=== PATIENT | female | born 1940 | race Caucasian/White ===

== ENCOUNTER 2017-09-30 18:14 | Inpatient (IN) | payer MEDICARE ==
[~2017-09-30] VITALS: Ht 167.6 cm; Wt 76.8 kg
[2017-09-30] MEDS ORDERED: ALLERGY MEDICAT25 MG PO (18:28)
[2017-09-30] MEDS ORDERED: METOPROLOL SUCC25 MG PO (18:29)
[2017-09-30] MEDS ORDERED: METOPROLOL TART25 MG PO (18:30)
[2017-09-30] MEDS ORDERED: ACETAMINOPHEN325 M1 PO (18:31)
[2017-09-30] MEDS ORDERED: DOK100 MG PO (18:32)
[2017-09-30] MEDS ORDERED: DULCOLAX10 MG PR (18:32)
[2017-09-30] MEDS ORDERED: FEOSOL325 MG PO (18:33)
[2017-09-30] MEDS ORDERED: FOLIC ACID0.4 MG PO (18:33)
[2017-09-30] MEDS ORDERED: LISINOPRIL2.5 MG PO (18:34)
[2017-09-30] MEDS ORDERED: IPRAT-ALBUT 0.5-3 ML INH (18:34)
[2017-09-30] MEDS ORDERED: FUROSEMIDE20 MG PO (18:34)
[2017-09-30] MEDS ORDERED: NAPROXEN250 MG PO (18:35)
[2017-09-30] MEDS ORDERED: NYSTATIN1 EAC1 TOP (18:35)
[2017-09-30] MEDS ORDERED: FLEET ENEMA133 ML PR (18:36)
[2017-09-30] MEDS ORDERED: CORTIZONE-1028 GM TOP (18:37)
[2017-09-30] MEDS ORDERED: MELATONIN3 MG PO (18:38)
--- NOTE | 2017-09-30 22:15 | NUR ---
MD CALLED PRIOR TO PT ARRIVAL. PER GIVE BUMEX UNDILUTED 5GM 20ML VIAL AT 0.25 MG/HR WHICH EQUALS 1ML/HR. READ BACK TO MD. PER CAN PLACE PT ON CPAP WHEN SHE ARRIVES D/T RESP. DISTRESS.
--- NOTE | 2017-09-30 22:25 | NUR ---
PT ARRIVED TO CCU ROOM 130 WITH SHAKE MAKER. PT IS VERY LETHARIC AND HAVING DIFICULTY TALKING AND BREATHING. PT RR 36 ON ARRIVAL AND PT STATES "I CANT BREATH I FEEL SHORT OF BREATH". RT IN ROOM AND PLACED PT ON BIPAP. PT REMAINS VERY LETHARGIC. VITALS TAKEN.
--- NOTE | 2017-09-30 22:30 | NUR ---
CALLED MD TO UPDATE PT STATUS. UPDATED MD THAT PT ARRIVED VERY SOB WITH RR 36 AND LETHARGIC. PER MD NEW ORDERS PLACED FOR ABG.
--- NOTE | 2017-09-30 22:35 | NUR ---
PER MD IF PT IS LETHARGIC IN THE AM AFTER BEING ON BIPAP ALL NIGHT DRAW ANOTHER ABG TO SEE IF ABG IS IMPROVED.
--- NOTE | 2017-09-30 22:40 | NUR ---
RT COMPLETED ABG. PT REMAINS ON BIPAP AND RR IS SLIGHTLY BETTER. PT DID NOT AWAKEN OR MOVE WITH ABG DRAW. MBA INTERN IN ROOM TO GET 2ND IV ACCESS.
--- NOTE | 2017-09-30 23:00 | NUR ---
ABG RESULTS ARE FINAL. CALLED MD TO NOTIFY. PER MD KEEP PT ON BIPAP OVERNIGHT. IF PT REMAINS LETHARGIC IN THE AM WILL REPAEAT AN ABG AT THAT TIME. PT BP ALSO SOFT 100'S. PER MD CHANGE BUMEX GTT TO .25MG/HR EQUALS 1ML PER HOUR. OLIVA PLACED PER ORDERS. PER MD IF UNABLE TO GET IV ACESS MAY PLACE AN EJ TONIGHT. WILL CONTINUE TO CLOSELY MONITOR.
--- NOTE | 2017-10-01 | NUR ---
BUDGET MANAGER RN PLACED IV IN RIGHT WRIST. OLIVA PLACED WITH NO ISSUES. PT REMAINS LETHARGIC RESTING ON BIPAP AT THIS TIME. WHEN MOVING PTS HAND AND SAYING HER NAME PT WILL AWAKEN FOR APROX 10 SECONDS AND NOD YES/NO TO QUESTIONS. WILL CONTINUE TO ENCOURAGE REST AT THIS TIME. WILL CONTINUE TO CLOSELY MONITOR.
--- NOTE | 2017-10-01 02:10 | NUR ---
PT ALERTNESS REMAINS UNCHANGED. BIPAP REMAINS IN PLACE. OLIVA IN PLACE DRAINING CLEAR YELLOW URINE. WILL CONTINUE TO CLOSELY MONITOR AT THIS TIME.
--- NOTE | 2017-10-01 04:30 | NUR ---
PT RESTING IN BED. PT REPOSITIONED FOR COMFORT. PT REMAINS ORIENTED TO SELF, DATE, PLACE BUT IS STILL LETHARGIC AT THIS TIME. WILL CONTINUE TO CLOSELY MONITOR. PLACED DRESSING ON FOOT WOUND AND COCCYX. PICTURES PLACED IN THE BOOK.
--- NOTE | 2017-10-01 06:00 | NUR ---
PT RESTING IN BED. BED ALARM ON FOR PT SAFETY. PT REMAINS ON BIPAP AND IS TOLERATING IT WELL. WILL CONTINUE TO CLOSELY MONITOR AT THIS TIME.
--- NOTE | 2017-10-01 08:15 | NUR ---
ASSESSMENT DONE. WILL OPEN EYES, RESPOND APPROP, FOLLOWING COMMANDS.REMAINS ON BIPAP AT 30% 15/8. OLIVA CATH PATENT WITH CLEAR YELLOW URINE NOTED. TALKED WITH PATIENT ABOUT PLAN OF CARE.
--- NOTE | 2017-10-01 10:00 | NUR ---
DR. ALFARO HERE TO SEE PATIENT. NO FUTHER ORDERS AT THIS TIME. MODIFIED SPONGE BATH GIVEN AND DRAW SHEET CHANGED. IS WITH EXTREME SHORTNESS OF BREATH WITH REPOSITIONING. TOOK FEW SIPS OF WATER WHEN OFF BIPAP. OFF BIPAP APPROX 10 MIN. O2 SAT TO 85% WHEN ON 2 L NC. REFUSING FOOD AT THIS TIME.
--- NOTE | 2017-10-01 10:20 | NUR ---
GRANDDAUGHTER IS AT BEDSIDE.
--- NOTE | 2017-10-01 10:40 | EKG ---
[facility] [address] [facility] [place] [address] Signed Sinus tachycardia Low voltage QRS Cannot rule out Anteroseptal infarct , age undetermined Abnormal ECG No previous ECGs available Confirmed by JUNE ALFARO MD ([id number]) on 10/01/2017 10:40:21 AM Electronically Signed By: JUNE ALFARO MD 10/01/17 1040 PATIENT NAME: MELLISSA HENRY Electrocardiogram DATE OF : 36 PHYSICIAN: JUNE ALFARO MD REPORT #: [id number] REPORT IS CONFIDENTIAL AND NOT TO BE RELEASED WITHOUT AUTHORIZATION
--- NOTE | 2017-10-01 12:57 | NUR ---
PT AWAKE AT THIS TIME, DAUGHTER AT BEDSIDE, BIPAP REMOVED AND PLACED ON O2 VIA NC SPO2 96% AT THIS TIME. PT GIVEN SILPS OF WATER AT THIS TIME.
--- NOTE | 2017-10-01 13:00 | NUR ---
FAMILY MEMBERS HERE, BIPAP TO 2 L NC PER R/O FAMILY AND PATIENT. PATIENT DENIES PAIN.
--- NOTE | 2017-10-01 14:00 | NUR ---
AWAKE, FEEDING PATIENT YOGART AND PUDDING. REMAINDS VERY SHORT OF BREATH. ON O2 AT 2 L AT THIS TIME. FMAILY MEMBERS N ROOM. PJ FARIAS PATENT.
--- NOTE | 2017-10-01 17:59 | NUR ---
SLEEPING ON BIPAP.
--- NOTE | 2017-10-01 19:45 | NUR ---
PT SHIFT REPORT RECIEVED FROM DAY SHIFT RN. PT IS RESTING IN BED AT THIS TIME. WILL CONTINUE TO CLSOELY MONITOR. BIPAP IN PLACE. CALL LIGHT IN HAND.
--- NOTE | 2017-10-01 21:00 | NUR ---
IN TO ASSESS PT. PT WOKE WHEN SAYING HER NAME. PT REQUESTED TO HAVE BIPAP REMOVED. PLACED ON 2L NC WILL MONITOR SPO2. PT REQUESTED TO HAVE BEDDING CHANGED. PROVIDED SURY CARE AND CATH CARE. PT REQUESTED ENSURE AND PUDDING. PT IS ALET AND ORIENTED X4. WILL LEAVE PT ON NASAL CANUAL FOR A BIT LONGER PER PT REQUEST. PT IS TOELRATING 2L NC WELL AT THIS TIME WITH RR 20 AND DENIES SOB. NO ACESSORY MUSCLE USE. ASSESSMENT COMPLETED. PT DOES NOT KNOW WHEN SHE HAD A BOWEL MOVEMENT LAST. HYPOACTIVE BT. PT HAS SIGNIFICANT EDEMA THROUGHOUT BODY. 4 PLUS EDEMA IN LEGS AND ARMS. HEEL PROTECTORES IN PLACE. SCDS ON.
--- NOTE | 2017-10-01 21:45 | NUR ---
PT TOLERATED NASAL CANNUAL FOR APPROX 30 MINUTES BEFORE NEEDING TO BE PLACED BACK ON BIPAP. PT REQUESTED TYLENOL FOR GENERALIZED DISCOMFORT. RT IN TO PLACE MASK ON PT. PT HAS CALL LIGHT IN HAND. OLIVA DRAINING CLEAR YELLOW URINE. MONITORING Q1 HOUR. WILL CONTINUE TO CLOSELY MONITOR PT. BREATH SOUNDS ARE CLEAR AND DIMINISHED.
--- NOTE | 2017-10-01 23:45 | NUR ---
PT RESTING IN BED AT THIS TIME. PT REMAINS ON BIPAP AT 30% FIO2 18/8. PT TOLERATES THESE SETTINGS WELL. SPO2 97%. WILL CONTINUE TO CLOSELY MONITOR. CALL LIGHT NEXT TO PATIENT HAND.
--- NOTE | 2017-10-02 02:00 | NUR ---
PT RESTING IN BED ON BIPAP AT 30% FIO2. PT ALERT AND ORIENTED. PT REQUESTS ICE CHIPS OCCASIONALLY FOR DRY MOUTH. PT DENIES ANY NEEDS AT THIS TIME. WILL CONTINUE TO ENCOURAGE REST. WILL CONTINUE TO MONITOR URINE OUTPUT Q1 HOUR. PT REMAINS ON BUMEX GTT.
--- NOTE | 2017-10-02 04:09 | NUR ---
PT WOKE AND REQUESTED TYLENOL FOR GENERALIZED DISCOMFORT. PT ALSO REQUESTED TO HAVE HER EYES CLEANED, CHAPSTICK, AND ICE CHIPS. RT IN TO PLACE SMALLER BIPAP MASK ON PT FOR COMFORT. PT STATES SHE IS NOT HUNGRY AT THIS TIME, BUT WOULD LIKE BREAKFAST LATER. SMALLER BIPAP MASK FITS PT BETTER. WILL CONTINUE TO LET PT REST ON BIPAP AND REMOVE IN THE AM FOR BREAKFAST OR IF THE PT NEEDS AT BREAK FROM IT SOONER. PT WAS OFF FOR APROX 20 MINUTES AND TOLERATED IT WELL. PT ON 3L WHEN OFF OF BIPAP. WILL CONTINUE TO CLOSELY MONITOR. PT DENIES TURNING AT THIS TIME.
--- NOTE | 2017-10-02 05:00 | NUR ---
PT ASKED TO HAVE BIPAP OFF. PT REQUESTED WATER AND ICE CHIPS. PLACED PT ON NC AT 2L. WILL CLOSELY MONITOR PT FOR RESPIRATORY CHANGES AND MONITOR SPO2. PT ALERT AND ORIENTED X4. CALL LIGHT IN REACH. WILL CONTINUE TO CLOSELY MONITOR AT THIS TIME.
--- NOTE | 2017-10-02 06:15 | NUR ---
PT REMAINS ON 2L NC. PT IS SLEEPING AT THIS TIME. RR 18-22. SPO2 97-98% ON 2L NC. PT IS BASELINE 2L NC AT HOME. NO ACESSORY MUSCLE USE. PT DENIES SOB. WILL COTNINUE TO CLOSELY MONITOR.
--- NOTE | 2017-10-02 06:19 | NUR ---
UPDATED MD THAT PT HAD RUN OF VTACH THIS AM WHILE SLEEPING AND WAS ASYMPTOMATIC AND DID NOT FEEL ANYTHING. NO NEW ORDERS AT THIS TIME. WILL CONTINUE TO CLOSELY MONITOR.
--- NOTE | 2017-10-02 06:48 | NUR ---
PT TOLERATED APROX 2 HOURS ON NC AT 2L. NO ACCESORY MUSCLE USE NOTED. RR 22. SPO2 98%. PLACED BACK ON BIPAP UNTIL PT BREAKFAST ARRIVES TO GIVE PT A BREAK. WILL CONTINUE TO CLOSELY MONITOR.
--- NOTE | 2017-10-02 07:32 | NUR ---
BEDSIDE REPORT RECEIVED FROM LITZY KAUR. PT RESTING AT THIS TIME IN BED WITH BIPAP ON, SETTINGS OF 15/8 AND 30% FI02. PT REMAINS ON A BUMEX GTT AT 1 MG/HR AT THIS TIME. OLIVA DRAINING DILUTE YELLOW URINE. HR IN THE UPPER 90s TO LOW 100s. ASSESSMENT AND VITALS TO BE DONE.
--- NOTE | 2017-10-02 08:24 | NUR ---
PATIENT OFF BIPAP FOR BREAKFAST. PT STATES SHE IS FEELING BETTER OVERALL BUT FEELS VERY WEAK AND NOTES HOW SHE CAN HARDLY LIFT HER ARMS OFF THE BED. PT ON 2 L NC. PT HELPED TO EAT ALL HER BREAKFAST. HR ELEVATED OFF BIPAP, 110s-120s AT TIMES, SINUS WITH PVCs AND INCREASED IRREGULARITY. PT NOTES HOW "WILLROSA ELENA WAS GIVING ME BETA BLOCKERS AND IT WAS CAUSING ALL MY SWELLING. I'M ALLERGIC TO ALL BETA BLOCKERS. THEY CAUSE THIS SWELLING." REVIEWED WITH PATIENT PLAN OF CARE AND BUMEX GTT. PT'S ARMS ELEVATED ON PILLOWS. ASSESSMETN COMPLETE. LUNG SOUNDS POSTERIORLY MID LUNG AND DOWN VERY DIMINISHED. CONTINUE TO MONITOR CLOSELY. CALL LIGHT WITHIN REACH.
--- NOTE | 2017-10-02 09:21 | NUR ---
DR. ALFARO IN TO EVAL PATIENT. PLAN TO REPLACE MAGNESIUM, TURN BUMEX GTT UP TO 0.5 MG/HR, AND PLACE PICC. TYRONE RN, IN ROOM NOW TO PLACE PICC. PT ABLE TO SIGN CONSENT. BIPAP TO BE CHANGED OVER TO CPAP. CONTINUE TO MONITOR.
--- NOTE | 2017-10-02 09:51 | NUR ---
PICC BEING INSERTED AT THIS TIME. CPAP NOW WITH SETTINGS OF 6 CMH20 AND 30% FI02.
--- NOTE | 2017-10-02 10:20 | NUR ---
PICC INSERTION NOTE. ORDERS RECIEVED TO EVALUATE MELLISSA FOR POSSIBLE PICC PLACEMENT. AFTER REVIEWING THE CHART, INTERVIEWING THE PT, AND DISCUSSING CARE WITH HER PRIMARY NURSE, NO ABSOLUTE CONTRAINDICATIONS WERE FOUND. RISKS AND COMPLICATIONS OF PICC LINES WERE DISCUSSED AND INFORMED CONSENT WAS SIGNED PRIOR TO THE START OF THE PROCEDURE. U/S EVALUATION OF THE RIGHT ARM WAS UNDERTAKEN AND THE RIGHT BASILC VEIN WAS MEASURED AT 2 CM DEPTH AND COUND ACCOMIDATE A 8 FR LINE PER SITE RITE. A 4 FR LINE WAS CHOSEN AND TRIMMED TO A PREMEASURED LENGTH OF 42 CM. THERE WERE NO PROBLEMS WITH IV ACCESS, GUIDEWIRE, INTRODUCER OR PICC ADVANCEMENT. U/S WAS USED TO CONFIRM THE GUIDEWIRE PLACEMENT IN THE VESSEL AND BRISK DARK RED NONPULSATILE BLOOD WAS SEEN FLOWING FROM THE INTRODUCER PRIOR TO PICC ADVANCEMENT. MAGNET TRACKING SHOWED THE PICC DROPPING INTO A CENTRAL LOCATION IN THE CHEST AND A SINGLE CXR WAS TAKEN. WE AWAIT CLEARANCE FROM RADIOLOGY PRIOR TO CLEARING THE LINE FOR USE. THE PT TOLERATED THE PROCEDURE WELL. QUESTIONS WERE ANSWERED REGARDING PICC LINES.
--- NOTE | 2017-10-02 10:29 | NUR ---
WOUND NURSE HERE TO EVALUTE PATIENT'S RIGHT FOOT WOUND. IV MAG STARTED. BUMEX INFUSING AT 2 ML/HR = 0.5 MG/HR.
--- NOTE | 2017-10-02 11:28 | NUR ---
PATIENT UP TO CHAIR AFTER SITTING ON EDGE OF BED WITH HELP OF OCCUPATIONAL THERAPY AND 2 RNS. PT USES WALKER AND PIVOTS TO CHAIR. PT DOUBTFUL SHE COULD DO THIS BUT WAS ABLE TO . PT NOW SITTING IN CHAIR AND WILL EAT LUNCH IN CHAIR. ARMS AND LEGS ELEVATD. CALL LIGHT WITHIN REACH. VITALS AND ASSESSMENT COMPLETE.
--- NOTE | 2017-10-02 13:28 | NUR ---
PT SITTING IN CHAIR, DOING WHAT LOOKED LIKE SOME SORE OF EXERCISE WITH ARMS -ONE AT A TIME. SHE DID NOT ACKNOWLEDGE ME UNTIL SHE APPARENTLY WAS FINISHED. SHE THEN SMILED AND WAVED ME IN. TOOK A MOMENT FOR PT TO RESPOND, AND SOON I MENTIONED THE RN'S, SHE WAS ON TRACK. PT MENTIONED THAT IT IS TOO HOT HERE, AND WANTS TO GO BACK HOME-TO [facility] WHERE IT IS COOLER. PT MENTIONED THAT SHE IS LOOKING FORWARD TO HAVING A "BANANA BLIZZARD". EXTENDED A BLESSING WILL FOLLOW A NEEDED
--- NOTE | 2017-10-02 14:01 | NUR ---
PATIENT BACK IN BED AT THIS TIME AFTER WORKIGN WITH PHYICAL THERAPY. PT IS 99-100% ON 2 L NC. PT STATES HER BREATHING IS DOING OKAY, AND OXYGEN TURNED DOWN TO 1 L AT THIS TIME. HR REMAINS SLIGHTLY ELEVATED AT 100-110s, SINUS. LAST BP 99/47 (58). OLIVA EMPTIED FOR 625 ML AT THIS TIME. BUMEX CONTINUES AT 0.5 MG/HR = 2 ML/HR. MONITOR.
--- NOTE | 2017-10-02 15:15 | NUR ---
BACK TO BED AFTER AMBULATING TO TO VOID 450 ML CLEAR YELLOW URINE. REMAINS ON O2 AT 3 L NC.
--- NOTE | 2017-10-02 15:15 | NUR ---
REPOSITIONED PATIENT TO RIGHT SIDE, PATIENT STATES " I AM TRYING TO KEEP FROM MY BUTT BREAKING DOWN, AND JUST WANT TO KEEP ON TOP OF IT". CALL LIGHT IN REACH, NO OTHER NEEDS AT THIS TIME.
[2017-10-02] MEDS ORDERED: MILK OF MA400 MG/5 M PO (15:58)
--- NOTE | 2017-10-02 16:04 | NUR ---
MED RECONCILIATION COMPLETE PER MAR FROM [facility].
--- NOTE | 2017-10-02 16:12 | NUR ---
c/o feeling short of breath. O2 SAT 90, HR-117,RR-26. BIPAP APPLIED.
--- NOTE | 2017-10-02 17:34 | NUR ---
PROVIDED PATIENT WITH BED BATH, REPOSITIONED PATIENT NOW SUPINE WITH HOB AT 45 DEGREE ANGLE. PATIENT BREATHING IMPROVED, NOW HAS NC ON SATURATIN 93%. CALL LIGHT WITHIN REACH.
--- NOTE | 2017-10-02 18:07 | NUR ---
PATIENT SITTING UP IN BED AND EATING DINNER AT THIS TIME. BLOOD PULLED FROM PIC FOR 1800 LAB DRAW. PATIENT ABLE TO MOVE SELF BETTER IN BED THIS AFTERNOON THAN EARLIER TODAY. CONTINUE TO MONITOR.
--- NOTE | 2017-10-02 19:40 | NUR ---
in room to complete evening assessment. pt drowsy and stated, "im tired". pt upper extremitites elevated on pillows to help with edema. oral care performed per pt request. repositioned pillows. pt denied further needs at this time.
--- NOTE | 2017-10-02 21:31 | NUR ---
in room to check pt for stool and reposition. pt reports passing lots of gas but no stool present.
--- NOTE | 2017-10-02 23:04 | NUR ---
pt complaining of restless leg. requesting tylenol at this time. gave 500mg tylenol po.
--- NOTE | 2017-10-03 00:16 | NUR ---
pt continues to rest in bed. stated, "my restless leg syndrome gone." ice chips given. pt denied further needs at this time. call light within reach.
--- NOTE | 2017-10-03 01:13 | NUR ---
pt resting in bed. no complaints at this time. repsirations even and unlabored. remains on 2l nc. fresh ice chips given.
--- NOTE | 2017-10-03 02:40 | NUR ---
IN ROOM WITH PT TO REPOSITION PILLOWS AND GIVE ICE CHIPS. PT DENIES FURTHER NEEDS AT THIS TIME. BUMEX GTT REMAINS AT 2ML/HR. GOOD URINE OUTPUT. PT DENIES SHORTNESS OF BREATH AT THIS TIME.
--- NOTE | 2017-10-03 04:14 | NUR ---
MORNING ASSESSMENT COMPLETE. EDEMA IMPROVING. PTS WORK OF BREATHING ALSO IMPROVED THIS AM. REMAINS ON 2L NC WITH FINE CRACKLES IN THE BASES. REPOSITIONED PT IN BED. PT REFUSED TO BE TURNED ONTO SIDE AT THIS TIME. ENCOURGAED FREQUENT REPOSITIONING THIS SHIFT. PT RESISTANT.
--- NOTE | 2017-10-03 05:49 | NUR ---
pt PICC line dressing saturated with serosang drainage. changed PICC line dressing using sterile technique. pt tolerated well. will contiue to monitor site for drainage. PICC line has good blood return and flushed well.
--- NOTE | 2017-10-03 08:18 | NUR ---
PATIENT LYING IN BED UPON INITIAL ASSESSMENT AND VERY RELUCTANT TO GET UP IN CHAIR THIS AM. PT WANTING TO WAIT FOR PHYSICAL THERAPY TO BE ABLE TO DO HER EXERCISES WITH THEM. PT ENCOURAGED THAT IT IS IMPORTANT TO START MOVING EARLY, AND ALSO THAT WE NEED TO OBTAIN A STANDING WEIGHT. STANDING WEIGHT IS 187.1 LB THIS AM. PT NOW SITTIGN IN CHAIR. 2 PERSON ASSIST WITH FWW. PT TOLERATED FAIR BUT SP02 NOTED TO DROP DOWN TO 85% ON 1 L. O2 INCREASED TO 2 L NOW AND SP02 IS NOW 97%. ASSESMENT COMPLETE. FINE CRACKLES AUSCULTATED IN LOWER LUNG BASES WITH SOME DIMINISHED BREATH SOUNDS STILL, BUT MORE AERATION THAN YESTERDAY. 1000 ML DILUTE URINE EMPTIED FROM CATHETER. EDEMA IMPROVING OVERALL AND WRINKLING NOTED TO LOWER LEGS. ARMS LESS SWOLLEN. OVERALL, PATIENT LOOKING BETTER. PT NOW WAITING FOR BREAKFAST. CONTINUE TO MONITOR.
--- NOTE | 2017-10-03 10:11 | NUR ---
PATIENT HELPED BACK TO BED PER REQUEST. DR. ALFARO IN TO SEE PATIENT AND PLAN TO DECREASE BUMEX GTT TO 0.25 MG/HR = 1 ML/HR. OLIVA EMPTIED FOR 825 ML DILUTE URINE AT THIS TIME. PT REQUESTIN TYLENOL FOR RIGHT FOOT PAIN. CONTINUE TO MONITOR. SCDS AND HEEL PROTECTORS ON.
--- NOTE | 2017-10-03 10:42 | NUR ---
PATIENT HAD A 31 BEAT RUN OF VTACH BUT WAS ASYMPTOMATIC WITH IT. RR NOTED TO BE ELEVATED AROUND 30 AT THIS TIME, HOWEVER PATIENT REFUSING TO WEAR CPAP NOW. SP02 IS 96% ON 2 L NC. CONTINUE TO MONITOR CLOSELY.
--- NOTE | 2017-10-03 10:53 | NUR ---
DR. ALFARO AND THIS RN DISCUSSED PLAN OF CARE. BUMEX GTT TO BE HELD AT THIS TIME AND REPEAT LABS TO BE DONE AT 1200. PHYS THERAPY IN TO SEE PATIENT BUT SHE IS WANTING TO WAIT UNTIL 1145 TO WORK WITH PHYSICAL THERAPY. SP02 IS 96% ON 2 L. HEART RATE CURRENTLY 100-110, SINUS WITH PVCs. CONTINUE TO MONITOR.
--- NOTE | 2017-10-03 12:30 | NUR ---
PATIENT WORKED WITH PHYS THERAPY AND NOW SITTING N CHAIR FOR LUNCH. PT DID NOT EAT MUCH LUNCH DO TO IT BEING TOO DRY, BUT NOW DRINKING AN ENSURE. CALL PUMA JORGE.
[2017-10-03] MEDS ORDERED: PROBIOTIC1 EAC1 PO (12:46)
--- NOTE | 2017-10-03 12:51 | NUR ---
MED REC COMPLETE
--- NOTE | 2017-10-03 14:12 | NUR ---
25 BEAT SVT NOTED ON MONITOR. PT ASYMPTOMATIC. PT MOVED FROM CHAIR BACK TO BED X 2 PERSON ASSIST AND FRONT WHEEL WALKER. OCCUPATIONAL THERAPY IN ROOM WITH PATIENT HELPING HER AT THIS TIME. DR. ANGELINA NOBLE ONTHE SVT AND ORDER REC'D TO FINISH THE REST OF THE BUMEX GTT, GIVEN 30 MEQ POTASSIUM AROUND 1430, AND WE WILL RE-CHECK LABS AT 1800 ORDERED. OLIVA EMPTIED AT 1400 FOR 650 ML DILUTE YELLOW URINE. PT NOTED TO DROP HER SP02 DOWN TO 86% WHILE AMBULATING. CONTINUE TO MONITOR.
--- NOTE | 2017-10-03 19:10 | NUR ---
SHIFT REPORT RECEIVED FROM LITZY QUIÑONES. PT CURRENTLY HAS VISITORS IN ROOM. 2L O2 VIA NC IN PLACE. PJ PATENT. BUMEX DRIP CURRENTLY AT 0.25MG/HR, INFUSING WNL. CALL LIGHT WITHIN REACH.
--- NOTE | 2017-10-03 20:30 | NUR ---
ASSESSMENT COMPLETED. ALERT/ORIENTED, DENIES PAIN. LUNGS CLEAR, DIM IN BASES, 2L O2 VIA NC IN PLACE, DENIES SOB AND CHEST PAIN. HR REGULAR. BOWEL TONES ACTIVE, DENIES NAUSEA. EDEMA PRESENT. SCD'S IN PLACE. ALLEVYN TO RIGHT FOOT HAS SHADOWING PRESENT. OLIVA PATENT, CATH CARE DONE. BUMEX DRIP COMPLETED, DISCUSSED WITH DR. ALFARO WHO STATED HE WILL D/C ORDER. PT ASSISTED TO REPOSITION. CALL LIGHT WITHIN REACH, DENIES FURTHER REQUESTS AT THIS TIME.
--- NOTE | 2017-10-03 23:36 | NUR ---
PT SLEEPING, WOKE EASILY TO TAKE HER PO POTASSIUM. ASSESSMENT COMPLETED, NO CHANGES FROM PREVIOUS ASSESSMENT. PT DENIES REQUESTS AT THIS TIME, WILL CONTINUE TO MONITOR.
--- NOTE | 2017-10-04 00:41 | NUR ---
PT CALLED AND REPORTED 4/10 PAIN IN HER LEFT SHOULDER. ASSISTED HER TO REPOSITION IN BED AND ADMINISTERED PRN TYLENOL. NO FUTHER REQUESTS AT THIS TIME. WILL CONTINUE TO MONITOR.
--- NOTE | 2017-10-04 03:40 | NUR ---
PT SLEEPING, WOKE EASILY TO TAKE POTASSIUM. ASSESSMENT COMPLETED. PT DENIES PAIN AT THIS TIME, NO OTHER CHANGES FROM PREVIOUS ASSESSMENTS. PT DENIES NEEDS, CALL LIGHT IS WITHIN REACH.
--- NOTE | 2017-10-04 06:06 | NUR ---
LABS DRAWN FROM PICC, GOOD BLOOD RETURN, THEN HEPARIN LOCKED. PT DENIES NEEDS. CALL LIGHT WITHIN REACH.
--- NOTE | 2017-10-04 08:12 | NUR ---
PATIENT USES CALL LIGHT AND IS AWAKE, SITTING UP IN BED UPON INITIAL ASSESSMENT. PT REQUESTING PILLOWS FOR HER ARMS. BREAKFAST ORDERED. PT STATES SHE SLEPT FAIRLY OKAY BUT WAS WOKEN UP SEVERAL TIMES TO TAKE POTASSIUM PILLS. BUMEX GTT OFF AT THIS TIME. EDEMA IMPROVING IN ARMS. OLIVA REMAINS IN PLACE. HR IN THE 90s CURRENLTY, WITH SP02 100% ON 22 L. PT DENIES SHORTNESS OF BREATH. PT TO GET UP TO CHAIR FOR BREAKFAST THIS AM.
--- NOTE | 2017-10-04 08:29 | NUR ---
PATIENT UP TO CHAIR WITH 1 PERSON ASSIST AND FWW. PT TOLEARTED WELL. NOW SITTING IN CHAIR EATING BREAKFAST. CALL LIGHT WITHIN REACH.
--- NOTE | 2017-10-04 08:53 | NUR ---
DR. ALFARO IN TO SEE PATIENT. PT STATES SHE IS OVERALL FEELING BETTER. PLAN IS FOR PATIENT TO RECEIVE MORE IV DIURETICS TODAY AND POTENTIALLY TRANSFER TO THE MEDICAL FLOOR LATER TODAY. CONTINUE TO MONITOR.
--- NOTE | 2017-10-04 11:31 | NUR ---
ATTEMPTED TO TITRATE DOWN OXYGEN PER DR. ALFARO'S ORDER. PT ABLE TO TOLERATE 1 L OF OXYGEN, BUT OFF OF OXYGEN, PT NOTED TO DESATURATE DOWN TO THE MID 80s WITHOUT ACTIVITY. 1 L LEFT ON AT THIS TIME.
--- NOTE | 2017-10-04 13:41 | NUR ---
PATIENT ATE ONLY ABOUT HALF OF HER LUNCH. ATTENDS CHANGED AFTER HAVING A LIQUID BM. PT NOW RESTING ON RIGHT SIDE. PT BECOMES VERY SHORT OF BREATH WITH TURNING AND ACTIVITY, HOWEVER SHE DENIES FEELING SHORT OF BREATH, BUT SHE IS VISIBLY HUFFING AND PUFFING. 02 GOING AT 1 L WITH SP02 98-100%. LAST BP 118/62. PT TOLEARTING ORAL PILLS WELL. IV LASIX GIVEN. OLIVA DRAINING DILUTE URINE. CALL LIGHT WITHIN REACH.
--- NOTE | 2017-10-04 17:11 | NUR ---
Certified Heart Failure Nurse Notes: Diagnosis: VT, RESPIRATORY FAILURE, HFrEF, atrial fibrillation EF 25% Patient was receptive to information and asked appropriate questions. Beta Zeinab - patient states causes fluid retention Admit Wt.: 213 lb Today's Wt.:180 lb Admit BNP: 1470 Social support system:daughter. States she will be discharging to [facility] Weight monitoring: Identifies how to weigh daily/ identifies when to notify PCP Symptom management: Specific written recommendations to follow-up for ongoing management, and to address changes in weight or symptoms Diet: Discussed low sodium diet and patient understands reasoning. Hidden sodium. States in past she had label reading abilities Advanced directive:Not discussed at this initial visit Recommend: Documented ambulation oxygen saturations prior to discharge Absence of orthostatic hypotension. Teaching materials given today: [facility] Living with Heart Failure book, Low Sodium Shopping list, Daily weight and symptom monitoring log, Zones magnet
--- NOTE | 2017-10-04 18:39 | NUR ---
PATIENT BEING TRANSFERED OVER TO THE MEDICAL FLOOR WITHOUT TELEMETRY. REPORT GIVEN TO PAULINA. PT STILL WAITING FOR HER DINNER AT THIS TIME. OLIVA EMPTIED.
--- NOTE | 2017-10-04 21:30 | NUR ---
pt was assisted in to bed qith two person assist from chair. Pt has large brown soft bm and walter barragan assisted with cleaning pt. new allevyn dressing applied to sacrum. call light in reach pt denies sob or pain. scd's and heel protectors in place and pt satting 96% on 1lpnc.
--- NOTE | 2017-10-04 23:45 | NUR ---
Pt incontinent of large soft brown stool. pt cleansed and barrier cream and new attends applied. pt repositioned in bed to right lateral side. pt given last 200mls of allotted fluids as ice water at this time. pt aware that this fluid will need to last her until breakfast. Allevyn dressing cdi to sacrum. heel protectors and scd's in place and pt denies having any further concerns or requests. 200mls of ice water and call light are in reach.
--- NOTE | 2017-10-04 23:48 | NUR ---
LITZY PARRA AND I HELPED PATIENT TO BED FROM CHAIR. CHANGED ATTENDS, HAD MEDIUM SIZE SOFT BOWEL MOVEMENT. CALL LIGHT WITHIN REACH. NO OTHER NEEDS AT THE MOMENT.
--- NOTE | 2017-10-05 01:23 | NUR ---
PT RESTING IN BED SUPINE, RESPIRATION EVEN NAD UNLABORED AND O2 95% PER PULSE OX, HR 96. CALL LIGHT IN REACH. PT APPEARS TO BE SLEEPING COMFORTABLY.
--- NOTE | 2017-10-05 03:30 | NUR ---
pt resting on right lateral side in bed, respirations even and unlabored. pt appears to be sleeping comfortably. 1lpnc remains in place. scd's and heel protectors on. call light in reach.
--- NOTE | 2017-10-05 05:00 | NUR ---
pt resting in bed, respirations even and unlabored pt appears to be sleeping comfortably. call light in reach and pt remains on 1lpnc.
--- NOTE | 2017-10-05 06:26 | NUR ---
pt transfered here from [facility] at 1900. pt sat mid to high 90's on 1lpnc. Pt denied sob unless exerted during change in position from chair to bed. Pt slept through the night with quantaty sufficient urine output. pt has been tolorating fluid restriction of 1500mls daily. Garces cath remains in place and is draining clear yellow urine. Picc line in place to right upper arm and is patent. heperin locked.
--- NOTE | 2017-10-05 07:00 | NUR ---
REPORT RC'D FROM HEALTH UNDERWRITER NURSE. PT RESTING COMFORTABLY IN BED WITH EYES CLOSED, 1L O2 VIA NC, RESPIRATIONS EVEN AND UNLABORED, NO ACUTE DISTRESS NOTED.
--- NOTE | 2017-10-05 07:35 | NUR ---
PATIENT WASHED HER FACE. GOT HER A CUP OF ICE AND ALSO ORDERED HER BREAKFAST. NOT SURE YET ON THE SHOWER WILL ASKE AGAIN LATER.
--- NOTE | 2017-10-05 08:10 | NUR ---
ALL MORNING MEDICATIONS GIVEN. PT A&O X3 AND RESPONDS APPROPRIATELY. DENIES SOB, 1L NC, LUNGS IN CLEAR IN UPPER BASES, CRACKLES NOTED IN RLL, LLL CLEAR. BOWEL TONES ACTIVE AND DENIES NAUSEA. OLIVA CATH IN PLACE AND DRAINING YELLOW URINE. 1+ EDEMA IN BLE. BREAKFAST AT BEDSIDE, PT ASSISTED WITH SET UP, CALL LIGHT WITHIN REACH. NO OTHER REQUESTS OR CONCERNS AT THIS TIME.
--- NOTE | 2017-10-05 10:14 | NUR ---
PT ADVISED OF NEW MEDICATION USE AND POSSIBLE SIDE EFFECTS, ALL QUESTIONS ANSWERED AT THIS TIME. PT NOTED TO HAVE INCREASED FATIGUE. ASSESSED ORIENTATION, PT A&O X4 AND RESPONDING APPROPRIATELY. PT CURRENTLY ON 1L NC, RESPIRATION EVEN AND UNLABORED. WILL CONTINUE TO MONITOR. CALL LIGHT WITHIN REACH. NO OTHER QUESTIONS OR CONCERNS AT THIS TIME.
--- NOTE | 2017-10-05 10:45 | NUR ---
PT AMBULATED TO CHAIR WITH PHY THERAPY, PT REASSESSED AT THIS TIME. RR 30/MIN, OXYGEN SATURATION 100% ON RA, RESPIRATION EVEN AND LABORED, DENIES SOB. DEEP BREATHING PERFORMED, RR NOW 24/MIN, PT STATES SHE NEEDS TO FOCUS ON SLOWING BREATHING, DENIES DISTRESS, PT COUNTING TO 3 AND TAKING BREATHS. ADVISED TO RELAX AND SLOW BREATHING, PT VERBALIZED UNDERSTANDING. PT RESTING IN CHIAR WITH EYES CLOSED, RR 20/MIN. WILL CONTINUE TO MONITOR.
--- NOTE | 2017-10-05 11:18 | NUR ---
RESPIRATIONS ASSESSED FROM DOORWAY. PT RESTING IN CHIAR COMFORTABLY, RESPIRATIONS EVEN AND UNLABORED, RR 20/MIN.
--- NOTE | 2017-10-05 13:30 | NUR ---
PT RESTING CONFORTABLY IN BED WITH EYES CLOSED. RESPIRATIONS EVEN AND UNLABORED, RR 18/MIN, NO ACUTE DISTRESS NOTED. CALL LIGHT WITHIN REACH.
--- NOTE | 2017-10-05 16:00 | NUR ---
PT RESTING IN BED COMFORTABLY. OLIVA CATH DC'D AT THIS TIME, WNL, PT TOLERATED WELL. SURY CARE COMPLETED, NEW ATTEND PLACED. PT ASSESSED FOR POSITIONING AND COMFORT. BED IN LOWEST POSITION. CALL LIGHT WITHIN REACH. DISCUSSED PERSONAL HYGIENE AND POSSIBLE SHOWER, PT VERBALIZED UNDERSTANDING AND AGREEABLE.
--- NOTE | 2017-10-05 16:17 | NUR ---
PT STATED TO NURSING STAFF TODAY THAT THEY DID NOT WANT TO GO BACK TO [facility] AND THAT SHE WOULD BE GOING TO [facility]. I WENT AND TALKED WITH PT REGARDING WHY SHE DID NOT WANT TO GO BACK TO [facility], SHE CO OF ONE NURSE THAT WOULD NOT LET HER REFUSE THE MED THAT SHE FIGURED WAS MAKING HER RETAIN WATER, THEN SHE COULDN'T CALL THE AMBULANCE, JUST WANTED AND STATED SHE WOULD CALL A TAXI FOR THE PT TO COME TO THE HOSPITAL, ALSO TALKED ABOUT 3 AIDS THAT WERE WONDERFUL, BUT STATED THE REST WERE AWEFUL AND WOULDN'T ANSWER THE CALL LIGHT AND THEY WOULD LEAVE HER IN HER WET ATTENDS FOR LONG TIMES. I CALLED AND SPOKE WITH RUTH ABOUT THESE INCIDENTS AND SHE STATED SHE WAS GOING TO TALK WITH DARRYL AND GET BACK TO ME WHICH SHE DID, ALSO STATED SHE WOULD COME UP AND TALK TO THE PT (WHICH SHE DID) WHILE TALKING WITH THE PT SHE REQUESTED THAT I CALL HER DAUGHTER LALA AND TALK ABOUT WHERE SHE IS TO GO. I TALKED WITH LALA THIS AFTERNOON AND SHE PRETTY MUCH REITERATED WHAT HER MOTHER HAD SAID AND I TOLD HER ABOUT WHAT RUTH HAD DONE AND WHAT WAS SAID. SHE STATED THAT SHE CALLED [facility] AND ASKED FOR AN EVALUATION FOR MEDICAID. I LET HER KNOW THAT THIS COULD TAKE UP TO 6 WKS OR SO TO GET AN ANSWER FROM. SHE STATED THAT IS HOW SHE WOULD HAVE TO PAY FOR ASSISTED LIVING OR LONG-TERM HOME WHICHEVER SHE NEEDS AFTER THE [facility] NEEDS WERE DONE CALLED AND TALKED WITH RALPH AT [facility] AND HE CONFIRMED THAT THEY HAD BEDS AVAILABLE, JUST REQUESTING ME TO SENT CHART NOTES TO HIM, WHICH IS DONE AND RECIEVED FAX CONFIRMATION.
--- NOTE | 2017-10-05 17:19 | NUR ---
PT 2PA TO AMBULATE TO BATHROOM. SHOWER COMPLETED. PT ASSISTED TO BEDSIDE COMMODE TO HAVE BM. PT WITH RECTAL BLEEDING, HEMORRHOIDS VISIBLE, MEDIUM SOFT STOOL. PT ASSISTED TO CHAIR FOR DINNER.
--- NOTE | 2017-10-05 17:35 | NUR ---
RIGHT FOOT DRESSING CHANGED AT THIS TIME. SMALL AMOUNT STAPLES DRAINAGE NOTED ON BANAGE. WOUND SITE CLEANSED WITH WOUND WASH AND DRESSED WITH ALYVAN DRESSING, PT TOELRATED WELL.
--- NOTE | 2017-10-05 18:09 | NUR ---
INCREASED FATIGUED NOTED IN THE MORNING, REST PERIODS THROUGHOUT DAY, UP TO CHIAR, AMBULATED TO SHOWER 1-2 PA WITH FWW. FLAT AFFECT NOTED AT BASELINE, SPEAKS IN SHORT SENTENCES. PT ON ROOM AIR MOST OF DAY WITH OXYGEN SATURATIONS GREATER THAN 90%. LUNG SOUNDS CLEAR IN UPPER AND DIMINISHED IN BASES. TACHYPNIA NOTED AT BASELINE, RESPIRATION EVEN AND UNLABORED. HX AFIB WITH RVR, IRREGULAR HEART SOUNDS ASSCULTATED, PULSE IRREGULAR. DECREASED APPETITE TODAY, REFUSED LUNCH AND DINNER, REQUESTED ENSURE. PT ON 1500 ML FLUID RESTRICTION CARDIAC DIET. ALYVAN DRESSING TO COXCCY AND RIGHT FOOT CHANGED. PICC LINE HEPARIN LOCKED. OLIVA CATH DC'D, ATTEND IN PLACE, PT UP TO COMMODE.
--- NOTE | 2017-10-05 18:39 | NUR ---
DR. ALFARO AT BEDSIDE TO ASSESS PT. EKG ORDERED.
--- NOTE | 2017-10-05 19:15 | NUR ---
PT TRANSFERED TO CCU FOR AFIB RVR. RECEIVING DIGOXIN LOADING DOSE, HR 130-160 VARIABLE. PT ON 2 L NASAL CANNULA, RESPIRATORY RATE 20-24. PT DENIES PAIN AT THIS TIME.
--- NOTE | 2017-10-05 23:49 | NUR ---
PT UP TO BEDSIDE COMMODE AND BACK TO BED. PT'S ONLY REQUEST IS MORE ICE WATER. PER RN PT WAS BLADDER SCANNED. PT HAS NO OTHER REQUESTS. INFORMED PT TO CALL IF SHE THINKS OF ANYTHING. CALL LIGHT IS IN REACH.
--- NOTE | 2017-10-06 02:53 | NUR ---
DISCUSSED BLOOD PRESSURE WITH DR ALFARO. MONITOR BP 88/50 MAP 59, MANUAL BP 84/50. HR 112. TO CONTINUE MONITORING PT.
--- NOTE | 2017-10-06 06:50 | NUR ---
PT WENT INTO MULTIPLE RUNS OF VENTRICULAR TACHYCARDIA. DR ALFARO NOTIFIED BY CCU NURSE JOSE ANGEL. PT DID NOT LOSE CONSCIOUSNESS, WAS TALKING AND DENIED ANY ILL FEELING. PT DENIED CHEST PAIN, SHORTNESS OF BREATH AND DIZZINESS. DR ALFARO ON HIS WAY TO THE UNIT.
--- NOTE | 2017-10-06 10:47 | NUR ---
PT IS VERY NEEDEY THIS AM SO FAR, SHE IS UNWILLING TO DO THINGS FOR HERSELF. SHE WOULD TELL STAFF TO LIFT HER WATER AND CHANGE HER BED POSITIONS. THIS INDUSTRIAL ROOFER HELPER GAVE HER THE BED CONTROL AND PT IS ABLE TO DO THINGS FOR HERSELF NOW BUT AT TIMES STILL ASK STAFF TO DO THINGS FOR HER EVEN WHEN SHE CAN DO IT HER SELF. PT ALSO TALKS IN SHORT WORDS SUCH "MORE WATER" "I DO NOT WANT TO USE ANY MORE ENGERY THAN I HAVE TOO".
--- NOTE | 2017-10-06 11:30 | NUR ---
JOSH CELL PHONE NUMBER [phone]
--- NOTE | 2017-10-06 12:00 | NUR ---
PT HAS BEEN ON HER CALL LIGHT MOST OF THE SHIFT WITH THINGS THAT THE PT CAN DO FOR HER SELF, BUT IS CHOOSING NOT TOO. PT HAS BEEN VOIDING FREQUENT SMALL AMOUNTS AND HAS WET THE BED COMPLETELY TWICE THIS AM. CALLED DR ALFARO DUE TO PT IS TAKING DEMADEX 80MG AND HAS TO VOID FREQUENTLY. HE DID NOT GIVE US ANY NEW ORDERS. BLADDER SCANED PT FOR 244 MLS, THEN PLACED PT ON THE BS COMMODE THEN VOIDED AN ADDITIONAL 200MLS OF URINE. PT THEN PLACED IN THE CHAIR FOR LUNCH.PT CONTIOUES TO NOT DO THINGS FOR HER SELF SUCH OPENING HER ICE CREAM, OR TAKING PILLS OUT OF THE MED CUP.
--- NOTE | 2017-10-06 13:17 | NUR ---
PT DRANK ENSURE FOR BREAKFAST AND SHERBET FOR LUNCH. REFUSING SOLID FOOD.
--- NOTE | 2017-10-06 13:41 | NUR ---
PT BACK UP TO THE BEDSIDE COMMODE, HAD BM AND VOIDED SOME AND THEM BACK TO THE CHAIR PLACED PT ON ROOM AIR WITH A SPO2 OF 100%.
--- NOTE | 2017-10-06 16:37 | NUR ---
PT REMAINS UP IN THE CHAIR AT THIS TIME. PT IS ON ROOM AIR AND DOING WELL WITH THIS, [id number]
--- NOTE | 2017-10-06 18:08 | NUR ---
TALKED WITH PT THIS AM AFTER I TALKED WITH RALPH INFRASTRUCTURE DESIGN ENGINEER AT [facility] AND HE STATED THEY WOULD ACCEPT THE PT BUT WERE UNABLE TO TAKE HER OVER THE WEEKEND. I EXPLAINED TO HIM THAT SHE PROBABLY WOULDN'T BE QUITE READY TO GO UNTIL THEN ANYWAY. PT STATED SHE DOES WANT TO GO TO THE [facility]. CALLED TO INFORM DAUGHTER LALA JUST NOW AND SHE SAID SHE WAS HERE SO I WENT AND MET HER, ANSWERED SOME QUESTIONS. LALA DENIES MORE QUESTIONS AT THIS TIME.
--- NOTE | 2017-10-06 20:59 | EKG ---
[facility] [address] [facility] [address] [address] [facility] [place] [address] Signed Atrial fibrillation with rapid ventricular response Low voltage QRS Septal infarct (cited on or before 30-SEP-2017) ST \T\ T wave abnormality, consider lateral ischemia Abnormal ECG When compared with ECG of 30-SEP-2017 20:14, Atrial fibrillation has replaced Sinus rhythm Vent. rate has increased BY 56 BPM Nonspecific T wave abnormality now evident in Inferior leads Inverted T waves have replaced nonspecific T wave abnormality in Lateral leads Confirmed by JUNE ALFARO MD ([id number]) on 10/06/2017 8:59:44 PM Electronically Signed By: JUNE ALFARO MD 10/06/172058 PATIENT NAME: MELLISSA HENRY Electrocardiogram DATE OF : 36 PHYSICIAN: JUNE ALFARO MD REPORT #: [id number] REPORT IS CONFIDENTIAL AND NOT TO BE RELEASED WITHOUT AUTHORIZATION
--- NOTE | 2017-10-06 21:00 | EKG ---
[facility] [address] [facility] [place] [address] Signed Atrial fibrillation with rapid ventricular response Anteroseptal infarct (cited on or before 30-SEP-2017) Abnormal ECG When compared with ECG of 05-OCT-2017 18:37, (Unconfirmed) Nonspecific T wave abnormality no longer evident in Inferior leads Confirmed by JUNE ALFARO MD ([id number]) on 10/06/2017 8:59:48 PM Electronically Signed By: JUNE ALFARO MD 10/06/17 2100 PATIENT NAME: MELLISSA HENRY Electrocardiogram DATE OF : 36 PHYSICIAN: JUNE ALFARO MD REPORT #: [id number] REPORT IS CONFIDENTIAL AND NOT TO BE RELEASED WITHOUT AUTHORIZATION
--- NOTE | 2017-10-06 21:00 | NUR ---
PT UP TO COMMODE, 2 PERSON ASSIST. USING SHORT PHRASES, ENCOURAGED TO SPEAK AND WALK NORMALLY. INCREASINGLY DEPENDENT BUT REDIRECTED TO PROVIDE OWN CARES IF POSSIBLE.
--- NOTE | 2017-10-06 21:30 | NUR ---
AMIO GTT RESTARTED AT 0.5 MG/HR (16.7 ML/HR)
--- NOTE | 2017-10-07 08:00 | NUR ---
oob to chair AFTER USING COMMODE TO VOID 200 ML OF YELLOW URINE. ASSESSMENT DONE. VERY DEMANDING. ENC PATIENT O BE MORE INDEPENDANT. FEET REMAIN EDEMATOUS. IS SHORT OF BREATH WITH EXERTION. STATES SHE IS VERY TIRED. SAID SHE WAS UP TO COMMODE SEVERAL TIMES IN THE NIGHT. TALKED WITH PATIENT ABOUT POC FOR DAY. INDICATES UNDERSTANDING. IN CHAIR READY FOR BREAKFAST.
--- NOTE | 2017-10-07 10:00 | NUR ---
DR. LAFARO HERE TO SEE PATIENT. ORDERS RECIEVED.
--- NOTE | 2017-10-07 10:10 | NUR ---
RESTFUL IN BED. DRESSING TO RIGHT FOOT REDRESSED AFTER DR. ALFARO ASSESSED WOUND.
--- NOTE | 2017-10-07 12:00 | NUR ---
HAS BEEN TO COMMODE SEVERL TIMES TO [facility]. IS INC TO ATTENDS BEFORE GETTING TO COMMODE. UNABLE TO MEASURE ACCURATE I/O.
--- NOTE | 2017-10-07 15:00 | NUR ---
WITH ACTIVITY HR TO 130. IS SHORT OF BREATH WITH EXERTION. NEEDS ENC TO BE INVOLVED WITH CARES.
--- NOTE | 2017-10-07 15:30 | NUR ---
NAPPING, NO DISTRESS NOTED.
--- NOTE | 2017-10-07 16:00 | NUR ---
AMIODARONE TO OFF.
--- NOTE | 2017-10-07 17:44 | NUR ---
TOOK ENSURE ONLY FOR DINNER. SITTING IN CHAIR. LEGS ELEVATED.
--- NOTE | 2017-10-07 18:00 | NUR ---
BACK TO BED WITH ASSIST. USES WALKER WITH TRANSFERS.
--- NOTE | 2017-10-07 19:13 | NUR ---
RESTFUL. HR-103 TO 117. NO VENT TACHY NOTED TODAY. WITH ACTIVITY , HR TO 130'S. DOES GET SOB WITH EXERTION. REPORT TO NEXT SHIFT.
--- NOTE | 2017-10-07 19:20 | NUR ---
SHIFT REPORT RECEIVED FROM LITZY WHITE. PT CURRENTLY RESTING IN BED. RA. PICC HL. CALL LIGHT WITHIN REACH.
--- NOTE | 2017-10-07 20:43 | NUR ---
PT AMBULATED TO COMMODE. HR IN 160S WITH QUESTIONABLE 6 BEAT RUN OF VT OR ACCELERATED CONDUCTION. DR ALFARO NOTIFIED OF RHYTHM CHANGE, NO ACTIONS TAKEN. PT RESTING, HR 110-115 NOW. ECTOPY RESOVLED AT THIS TIME.
--- NOTE | 2017-10-07 21:00 | NUR ---
ASSESSMENT COMPLETED. PT IS ALERT/ORIENTED, DENIES PAIN. LUNGS CLEAR, TACHYPNIC RR:30'S. HR IRREGULAR. BOWEL TONES ACTIVE, DENIES NAUSEA. 3+EDEMA NOTED IN BILATERAL FEET. ALLEVYN TO RIGHT FOOT HAS SCANT AMOUNT OF SHADOWING NOTED. PT CURENTLY DENIES SOB AND CHEST PAIN. SCD'S IN PLACE. PICC HEPARIN LOCKED. PO PACERONE STARTED. PT DENIES NEEDS, CALL LIGHT IS WITHIN REACH.
--- NOTE | 2017-10-07 22:00 | NUR ---
PT WAS INCONTINENT OF URINE, NEW ATTENDS AND PERICARE PROVIDED. PT BOOSTED UP IN BED. CALL LIGHT IS WITHIN REACH, NO FURTHER REQUESTS AT THIS TIME.
--- NOTE | 2017-10-07 23:15 | NUR ---
ASSESSMENT COMPLETED. NO CHANGES FROM PREVIOUS ASSESSMENT. CALL LIGHT WITHIN REACH. WILL CONTINUE TO MONITOR.
--- NOTE | 2017-10-07 23:38 | NUR ---
PT CALLED AND HAD BEEN INCONTINENT OF URINE. ATTENDS AND SURY-CARE PROVIDED. PT REMARKS "TOMORROW, NO MORE FOOD WATER, OR PILLS. I'M GETTING OUT OF HERE." I REMARKED THAT I HEARD SHE WAS NOT RETURNING TO [facility] AND ASKED IF SHE WAS WANTING TO GO BACK TO [place]. PT STATES "NO, THE ONLY WAY I'M LEAVING HERE IS THROUGH [place]." PT COMMENTS THAT SHE HAS NOT BEEN COMFORTABLE SINCE SHE WAS AT HOME IN HER ADJUSTABLE CHAIR AND THAT SHE IS TIRED OF BEING SO UNCOMFORTABLE. I ASKED IF THERE WAS ANYTHING I COULD DO TO HELP AND SHE STATES "NO." I ASKED PT IF ANYONE HAD DISCUSSED COMFORT CARE WITH HER AND SHE SAID NO AND ASKED WHAT IT WAS. DISCUSSED COMFORT CARE WITH PT WHO STATES THAT IS WHAT SHE WANTS. SHE STATES SHE NO LONGER WISHES TO TREAT HER ILLNESS AND STATES SHE IS READY TO . I ASKED IF THAT MADE HER FEEL SAD, AND SHE STATES "NO, ITS JUST MY TIME." I ALSO ASKED PT ABOUT HER CODE STATUS, STATING THAT RIGHT NOW SHE IS ONLY DNR AND THAT IF SHE STOPPED BREATHING WE CAN STILL INTUBATE HER. SHE STATES SHE DOES NOT WANT THIS, SAYS "THEN I'D JUST HAVE TO PULL IT OUT." PT ASKS "HOW SOON CAN COMFORT CARE START?" I INFORMED HER THAT THIS NEEDS TO BE DISCUSSED WITH THE DOCTOR AND PT STATES "OK, I WANT TO SPEAK WITH HIM FIRST THING IN THE MORNING." I ASSURED PT THAT I WOULD LET DR. ALFARO KNOW ABOUT HER ISHES WHEN I SPEAK TO HIM.
--- NOTE | 2017-10-08 01:06 | NUR ---
PT CALLED TO REQUEST REPOSITIONING. BOOSTED UP IN BED, NEW ATTENDS AND CHUX UNDER PT BECAUSE SHE STATES SHE FEELS A BUMP UNDER HER RIGHT HIP. PT GIVEN WARM WASH CLOTH AND CHAPSTICK PER REQUEST. DENIES FURTHER REQUESTS AT THIS TIME. CALL LIGHT WITHIN REACH.
--- NOTE | 2017-10-08 01:44 | NUR ---
PT CALLED TO USE COMMODE. UP WITH 1-PA AND FWW, WAS INCONTINENT OF URINE WHILE TRANSFERRING. PT HAD SMALL AMOUNT OF BM IN COMMODE MIXED WITH URINE. BED LINENS STRAIGHTENED AND PT RETURNED TO BED. ICE CHIPS PROVIDED PER REQUEST. CALL LIGHT WITHIN REACH, NO FURTHER REQUESTS AT THIS TIME.
--- NOTE | 2017-10-08 03:47 | NUR ---
PT CALLED TO REQUEST POPSICLE. UPON FINISHING, STATED THAT SHE WAS INCONTINENT OF URINE. PERICARE AND NEW ATTENDS PROVIDED. ASSESSMENT COMPLETED, NO CHANGES FROM PREVIOUS ASSESSMENTS. CONTINUES TO DENY CHEST PAIN AND SOB. PICC REMAINS HL. PT CONTINUES TO EXPRESS WISHES TO BECOME COMFORT CARE. PT DENIES NEEDS, CALL LIGHT WITHIN REACH.
--- NOTE | 2017-10-08 11:28 | NUR ---
PT DENIED BEDBATH AND SHOWER. VITAL SIGNS COMPLETED. PT COMFORTABLE IN BED. CALL LIGHT WITHIN REACH.
--- NOTE | 2017-10-08 11:30 | NUR ---
DR. ALFARO HERE TO TALK WITH PATIENT AND PATIENT DAUGHER REGARDING PATIENT REQUEST OF COMFORT CARE.
--- NOTE | 2017-10-08 11:50 | NUR ---
DR. ALFARO SAID THE TREATMENT FOR PATIENT WILL STAY THE SAME UNTIL TOMORROW THEN WILL REEVALUATE.
--- NOTE | 2017-10-08 12:00 | NUR ---
REFUSING PO MAG. EXPLAINED TO PATIENT NEED FOR MEDICATION. CONTINUE TO REFUSE. PATIENT DAUGHTER IN ROOM.
--- NOTE | 2017-10-08 12:05 | NUR ---
ORDERS RECIEVED TO GIVE PO CARDIZEM, EXPLAINED TO PT NEED FOR THIS MEDICATION. PATIENT REFUSING. DR. ALFARO AWARE, PATIENT WILL BE TRANSFERRED TO MEDICAL FLOOR LATER TODAY.
--- NOTE | 2017-10-08 12:30 | NUR ---
assessment not done.
--- NOTE | 2017-10-08 14:34 | NUR ---
PATIENT TO THE FLOOR FORM CCU. PATIENT BROUGHT OVER IN BED. INTRODUCED SELF TO PATEINT AFTER GETTING REPORT FROM CHRISTOPHER MCGHEE. PATIENT STATED THAT SHE WILL CONTINUE NOT TO TAKE ANY OF HER MEDICATIONS. PATIENT STATING, " I AM DONE, I WANT YOU TO KNOW THAT i WILL CONTINUE NOT TO EAT OR TAKE MY MEDICATIONS." " I AM HAPPY WITH THAT" " i JUST WANT TO BE COMFORTABLE". COMFORT CARE ITEMS DISCUSSED WITH PATIENT. PATIENT ALLOWED FOR ASSESMENT. VITALS TAKEN. PATIENT STAITNG DAUGHTER WILL BE BACK SOON.
--- NOTE | 2017-10-08 14:36 | NUR ---
pt arrived from CCU transfer vitals were taken and charted. pt is resting safely in bed with call light in reach.
--- NOTE | 2017-10-08 15:05 | NUR ---
DAUGHTER TO ROOM. DAUGHTER BROUGHT ROOTBEER POPSICLES FOR PATEINT. PATIENT STATING THAT THEY TASTE GOOD. PATEINT AGREEING TO EAT THEM. DAUGHTER AND FRIEND IN ROOM VISITING WITH PATIENT.
--- NOTE | 2017-10-08 16:19 | NUR ---
PATIENT VISITING WITH FAMILY IN ROOM. UPDATED BOARD IN ROOM WITH NEW DOCTOR INFORMATION. PATIENT ASKING AGAIN ABOUT MEDICATION, AND STATING THAT SHE WILL NOT TAKE HER MEDICATION. TOLD PATIENT THAT I VERIFIED WITH DR. COLLINS AND UPDATED HER ON PATIENTS REQUEST. PATIENT IS REQUESTING A SLEEPING PILL FOR IF SHE IS UNABLE TO SLEEP.
--- NOTE | 2017-10-08 16:42 | NUR ---
PATIENT STATED THAT SHE DOES NOT WANT DINNER AT THIS TIME. DAUGHTER LEFT TO GO HOME. PATIENT REPOSIION IN BED.
--- NOTE | 2017-10-08 17:40 | NUR ---
PATIENT CCU TRANSFER THIS AFTERNOON. PATIENT WISHES TO BE COMFORT CARE. PATIENT DOES NOT WISH TO TAKE ANY OF HER MEDICATIONS. SHE DOES NOT WANT TO EAT. PATIENT HAS ICE AND POPSICLES AT BEDSIDE. NORCO FOR PAIN. REFUSING ALL OTHER MEDS. ORDERS FOR VITALS Q SHIFT. PLAN FOR MEETING WITH DISCHARGE PLANNING TOMORROW. AWARE OF PATIENT REFUSING MEDICATIONS.
--- NOTE | 2017-10-08 17:58 | NUR ---
pt has not eaten or drank anything and does not want vitals taken, nurse aware. pt is resting in bed safely with call light in reach and did not need anything at the moment
--- NOTE | 2017-10-08 19:53 | NUR ---
RECEIVED BEDSIDE REPORT FROM MEGAN MCGHEE. PT IN BED AT THIS TIME. ALERT AND ORIENTED. PT REQUESTING ONLY 1 SET OF VITALS THIS SHIFT. ASLO REPORTS SHE WILL BE REFUSING NIGHT TIME MEDICATION EXCEPT SLEEPING PILL. PLAN TO TURN Q2H. PT REPORTS NO PAIN AT THIS TIME. CALL LIGHT WITHIN REACH. OLIVA IN PLACE AND DRAINING CLEAR YELLOW URINE. NO OHTER NEEDS.
--- NOTE | 2017-10-08 20:25 | NUR ---
PT REFUSING CARDIAC MEDICATION AT THIS TIME. EDUCTED PT ON IMPORTANCE. STILL REFUSING. PT AGREED TO LET ME DO HEPARIN FLUSH AND REQUESTED SLEEPING PILL ONLY. ALSO REFUSED MELITONIN AT THIS TIME AND ONLY WANTS ONE THING TO SLEEP. PT LET ME DO ONE ASSESSMENT AND STATED SHE REFUSES TO HAVE ANOTHER ON COMPLETED THIS SHIFT. CALL LIGHT IN REACH. NO OTHER NEEDS AT THIS TIME.
--- NOTE | 2017-10-08 20:50 | NUR ---
CALL LIGHT ANSWERED. REPORTS BEING COLD. WARM BLANKET PROVIDED. REPORTS NO OTHER NEEDS. CALL LIGHT IN REACH.
--- NOTE | 2017-10-08 22:00 | NUR ---
REPOSITIONED HEATING PAD ON PT NECK. CALL LIGHT IN REACH. REPORTS NO OTHER NEEDS.
--- NOTE | 2017-10-08 23:02 | NUR ---
PT CALLED REQUESTING PAIN MEDICATION. ALSO HELPED HER GET COMFORTABLE AND REMOVE A BLANKET AND FLUFF HER PILLOWS. PT STATES SHE MAY DECIDE TO TAKE ONE OF HER WATER PILLS TO AVOID SWELLING AND PAIN IN HER LEGS. SHE DENIES FURTHER NEEDS AT THIS TIME.
--- NOTE | 2017-10-08 23:41 | NUR ---
PT REQUESTING TO WRITE NEW WILL TOMORROW. STATES HERS INS IN [place] SO SHE'LL JUST WRITE A NEW ONE TOMORROW. INFORMED HER TO TALK TO DISCHARGE PLANNING ABOUT THAT TOMORROW WHEN THEY VISIT.
--- NOTE | 2017-10-08 23:53 | NUR ---
PT APPEARS TO BE SLEEPING. RESPIRAITONS IN HIGH 20'S. HOB ELEVATED. LEGS ELEVATED. CALL LIGHT IN REACH.
--- NOTE | 2017-10-09 02:18 | NUR ---
PT APPEARS TO BE SLEEPIN, BED IN LOWEST POSITION, CALL LIGHT IN REACH, LEGS ELEVATED, HOB ELEVATED, RESPIRATIONS ARE LABORED AT 24/MIN. PERSONAL ITEMS AT BEDSIDE. OLIVA CATH IN PLACE. DRAINING SMALL AMOUNT OF YELLOW URINE.
--- NOTE | 2017-10-09 05:45 | NUR ---
PT CALLED AND ASKED WHEN SHE CAN HAVE HER DIURETIC AND ALSO STATED SHE FEELS SOB. TOOK VS, RR INCREASED AND O2 SAT IS 91%. CALLED RT TO GET PRN NEB TRT. PT STATES IT HELPED. PT IS SITTING UP HIGHER IN BED AT THIS TIME AND ADVISED HER SHE HAS A DIURETIC DUE THIS MORNING. PT DENIES FURTHER NEEDS.
--- NOTE | 2017-10-09 06:38 | NUR ---
PT SLEPT THROUGHOUT THE NIGHT WITH SLEEPING PILL. NORCO GIVEN FOR NECK PAIN LAST NIGHT. LEGS ELEVATED. PT REFUSING MEDICAITON. EDUCATION PROVIDED FOR DISEASE PROCESSES. BREATHING TREATMENT THIS AM FOR SOB. REPORTS THIS HELPED. MIGHT WANT TO TAKE WATER PILL THIS AM FOR SWELLING AND BREATHING PURPOSES. TURN Q2. PT WANTS TO BE PLACED ON COMFORT CARE. V/S QSHIFT. ASSESSMENT REFUSED THIS AM. PT REFUSING TO EAT OR DRINK. PT IS A/O COMPLETELY. LIKES ORANGE POPCICLES CUT UP.
--- NOTE | 2017-10-09 09:20 | NUR ---
PATIENT REFUSED ORAL CARE. BED BATH DONE ON FRONT SIDE OF THE PATIENT. PATIENT STATES SHE DOESN'T WANT TO TURN AT THIS TIME TO WASH HER BACK SIDE. PATIENT REFUSED SHOWER CAP.
--- NOTE | 2017-10-09 09:30 | NUR ---
PT IS REFUSING TO TAKE HER MEDICATIONS THIS AM. "I JUST WANT TO TAKE ONE WATER PILL", SHE ALLOWED THIS COLOR DEPOSITING MACHINE TENDER TO DO CARE ON THE PICC LINE. SHE IS IN BED AND HAS BOTH FEET ELEVATED ON PILLOWS. AND SHE IS EATING ORANGE POPCICLES.
[2017-10-09] MEDS ORDERED: PACERONE200 MG PO (10:47)
[2017-10-09] MEDS ORDERED: TORSEMIDE20 MG PO (10:48)
[2017-10-09] MEDS ORDERED: KLOR-CON 1010 MEQ PO (10:48)
[2017-10-09] MEDS ORDERED: HYDROCODON-ACE1 EA10 PO (10:48)
[2017-10-09] MEDS ORDERED: MAG-OXIDE400 MG PO (10:49)
--- NOTE | 2017-10-09 10:56 | NUR ---
PT WILL BE DISCHARGE TO A SNF IN [facility] AT SOME POINT TODAY. ALL PERSONAL BELONGINGS ARE PACKET UP AND WILL BE SENT WITH THE PATIENT.
--- NOTE | 2017-10-09 11:30 | NUR ---
FAXED ORDERS AND PASRR TO [facility]. RECIEVED FAX CONFIRMATION FROM THIS. SPOKE WITH RALPH, THE [employer] DANCER FROM THERE AND HE SAID THEY WOULD REVIEW THE ORDERS AND HE WOULD CALL ME BACK.
--- NOTE | 2017-10-09 11:51 | NUR ---
DISCHARGE INSTRUCTIONS GIVEN, BUT PT DID NOT WANT TO GO OVER THEM . bUT SHE WAS WILLING TO SIGN THEM. "JUST PUT IT IN THE PACKET". PICC LINE REMOVED, TIP INTACK, NO SWELLING NOTED.
--- NOTE | 2017-10-09 12:15 | NUR ---
RALPH CALLED AND STATED THE ORDERS WERE APPROVED AND HE WOULD BE HERE IN APPROX 1 HOUR OR SO TO PICK PT UP.
--- NOTE | 2017-10-09 13:48 | NUR ---
PT WAITING FOR HER RIDE TO [place]. NO C/O'S AT THIS TIME.
--- NOTE | 2017-10-09 14:14 | NUR ---
PT DISCHARGED AT THIS TIME, ALL PERSONAL BELONGS SENT WITH PT AND GIVEN TO THE TRANSPORT STAFF. REPORT CALLED AND ALL QUESTIONS ANSDERED.
--- NOTE | 2017-10-09 15:24 | NUR ---
REPORT GIVEN TO RN AT FACILITY IN [facility]
--- NOTE | 2017-10-10 13:36 | NUR ---
HEART FAILURE FOLLOW UP CALL-Patient was transferred to [facility] yesterday. Today, I spoke with Pat RN at this facility. They are not any questions or medication prescription concerns. Reports patient is doing fine. Daily weights were not ordered upon DC but Pat has agreed to perform them as a nursing order. Patient will be seen by their physician for follow up.
== END 2017-10-09 14:15 | disposition home or self-care (01) | DRG 291 ==
LOC: ED 18:14 → CCU 21:26 → MS 10-04 19:15 → CCU 10-05 18:45 → MS 10-08 14:15
PROVIDERS: ADMIT Internal Medicine
PROC: 02HV33Z Insertion of Infusion Device into Superior Vena Cava, Percutaneous Approach (ICD-10-PCS; principal; 2017-10-02 10:00)
DX: I11.0 Hypertensive heart disease with heart failure (principal); J96.22 Acute and chronic respiratory failure with hypercapnia; J96.21 Acute and chronic respiratory failure with hypoxia; I47.2 Ventricular tachycardia; I50.23 Acute on chronic systolic (congestive) heart failure; I48.0 Paroxysmal atrial fibrillation; S91.301A Unspecified open wound, right foot, initial encounter; M19.90 Unspecified osteoarthritis, unspecified site; Z66 Do not resuscitate
CPT/HCPCS: 36415; 36569; 36600; 51702; 51798; 71045; 80048; 80053; 80069; 80162; 82607; 82728; 82746; 82803; 83540; 83735; 83880; 84100; 84466; 85025; 93005; 93010; 94640; 94660; 96374; 97110; 97116; 97161; 97163; 97166; 97530; 97535; 97602; 99285; C1751; J0282; J1120; J1160; J3475